=== PATIENT | male | born 1955 | race African-American/Black ===

== ENCOUNTER → 2016-08-05 | Day surgery (SDC) | payer BC, OTHER ==
[2016-07-30 11:41] VITALS: Ht 198.1 cm; Wt 105.5 kg
[~2016-08-05] VITALS: Ht 198.1 cm; Wt 105.5 kg
[~2016-08-05] MED LIST: AMLO-110 PO; ARGI1POW PO; B-COTAB18 PO; BENA20TA14 PO; CLON1TAB3 PO; CLR10 PO; FLNIN NAE; GABA1CAP5 PO; HYDR25TA5 PO; IOPAMIDOL INJ 61% 15 ML VIAL ONE; LEVO88TA3 PO; LIDOCAINE HCL 1% MPF 5 ML VIAL ONE; METH500T PO; SERT-234 PO; SNG10 PO; SODIUM CHLORIDE 0.9% INJ 10 ML VIAL ONE; TIZA4CAP PO; TRAM-10 PO
--- NOTE | 2016-08-05 13:55 | History & Physical Bridge - [place] ---
H&P Re-Evaluation Bridge Note: I have examined the patient, reviewed the History & Physical and in the interval since the performance of the History & Physical I have noted the following changes of clinical significance: No changes noted
[2016-08-05 14:24] VITALS: TEMP 36.9
--- NOTE | 2016-08-05 14:28 | Discharge Instructions ---
Discharge Instructions Visit Reason for Visit: Lumbar Radiculopathy Discharge Discharge Diagnosis / Problem: left leg pain Discharge Goals Goal(s): Decrease discomfort, Improve function Activity Recommendations Activity Limitations: resume your previous activity Anesthesia . Post Anesthesia Instructions: If you have had General Anesthesia or IV Sedation: * Do not drive today. * Resume driving when surgeon permits. * Do not make important decisions or sign legal documents today. * Call surgeon for: 1. Temperature elevations greater than 101 degrees F. 2. Uncontrollable pain. 3. Excessive bleeding. 4. Persistent nausea and vomiting. 5. Medication intolerance (nausea, vomiting or rash). * For nausea and vomiting use only clear liquids such as: tea, soda, bouillon until nausea subsides, then gradually increase diet as tolerated. * If you have any concerns or questions, call your surgeon's office. If physician is unavailable and it is an emergency, call 911 or go to the nearest emergency room. . Diet Recommendations Recommended Home Diet: resume previous diet Procedures Procedures Performed: LIMBAR EPIDURAL STEROID INJECTION. Pending Studies Studies pending at discharge: no Medical Emergencies . Who to Call and When: Medical Emergencies: If at any time you feel your situation is an emergency, please call 911 immediately. . Non-Emergent Contact Non-Emergency issues call your: Specialist . . "Provider Documentation" section prepared by Mukul Avila.
[2016-08-05 14:32] VITALS: BP 138/82; PULSE 64; O2SAT 96
--- NOTE | 2016-08-05 14:38 | OPERATIVE REPORT ---
DATE OF OPERATION: 08/05/2016 PREOPERATIVE DIAGNOSIS: L3-4 annular tear with a left L4 radiculopathy. POSTOPERATIVE DIAGNOSIS: Same. PROCEDURE: Left paramedian L4-5 interlaminar epidural steroid injection under fluoroscopic guidance. INDICATIONS FOR PROCEDURE: The patient is a 61-year-old male who responded favorably to an oral prednisone taper. Recent imaging of the lumbar spine has revealed an L3-4 annular tear which corresponds with the left lower extremity radicular symptoms. The prednisone taper was beneficial; however, he is still functionally limited because of the pain down the left leg and he presents today for an epidural steroid injection to provide him with relief that is more long lasting and substantial as he has had success with epidural injections in the past for radicular type pain. PHYSICAL EXAMINATION: Pleasant male seated comfortably. He had some difficulty moving from a sit to stand position. He has normal lower extremity strength. Negative seated straight leg raises and intact sensation distally at the L4, L5, and S1 dermatomes. CONSENT: Verbal and written consent was obtained from the patient. Risks and benefits were reviewed. Risks include but are not limited to epidural abscess, epidural hematoma, allergic reaction, dural puncture. The patient wishes to proceed. DESCRIPTION OF PROCEDURE: The patient was taken back to the special procedures room of the [facility] where he was maintained in a prone position. Backside was cleansed with Betadine x3 and a dry sterile dressing was applied. Fluoroscope was used to identify the L4-5 intralaminar space and overlying skin was anesthetized with 4 mL of lidocaine 1% with a 25-gauge 1.5-inch needle. A 22-gauge 3.5-inch Tuohy needle was then directed down towards the intralaminar space. It was advanced under lateral fluoroscopic guidance. Loss of resistance was noted at a depth of just under 8 cm. Isovue-300 contrast 1 mL was injected in which demonstrated epidural uptake pattern which showed great flow superiorly into the L3-4 disc space in the area. He then underwent injection after negative aspiration of 40 mg of Depo-Medrol, 4 mL of preservative free sodium chloride. Injection was well tolerated. DISPOSITION: 1. The patient is taken out into the discharge recovery area where he will be discharged home once discharge criteria have been met. 2. Follow up in the [facility] office in 2-4 weeks. I attest to the content of the Intraoperative Record and any orders documented therein. Any exceptio ns are noted below.
== END | disposition home or self-care (01) ==
LOC: X.SURG 13:40
PROVIDERS: ATTEND Physical Medicine & Rehabilitation
DX: M51.86 Other intervertebral disc disorders, lumbar region (principal); M54.16 Radiculopathy, lumbar region

== ENCOUNTER → 2017-09-16 | Outpatient (CLI) | payer BC ==
[~2017-09-16] MED LIST changes: +GABA-1220 PO; -GABA1CAP5 PO; -IOPAMIDOL INJ 61% 15 ML VIAL ONE; -LIDOCAINE HCL 1% MPF 5 ML VIAL ONE; -SODIUM CHLORIDE 0.9% INJ 10 ML VIAL ONE
--- NOTE | 2017-09-16 12:23 | DIAGNOSTIC IMAGING REPORT ---
LUMBAR SPINE MRI HISTORY: Back pain. Left leg pain. FORAMINAL STENOSIS OF LUMBAR REGION TECHNIQUE: Multiplanar multisequence MRI of the lumbar spine was performed without the use of contrast. COMPARISON: Lumbar spine MRI 02/25/2016. FINDINGS: For the purpose of the report the L5-S1 disc space will be located on axial image 23 of 26. There is 2 mm of retrolisthesis of L3 on L4, unchanged. Mild disc space narrowing at L1-L2, L3-L4, L4-L5, and L5-S1 is also unchanged. There is mild disc space narrowing within the lower thoracic spine. The conus terminates at the L1-L2 disc space level. Moderate facet degenerative changes at L5-S1. No fractures within the lumbar spine. Paraspinal soft tissues are unremarkable. Scattered areas of mild endplate edema within the lumbar spine is likely due to degenerative change. L1-L2: No significant central canal or neural foraminal narrowing. L2-L3: No significant central canal or neural foraminal narrowing. L3-L4: No significant central canal or neural foraminal narrowing. Tiny broad-based posterior disc bulge. L4-L5: Small broad-based posterior disc bulge. No significant central canal narrowing. There is mild bilateral neural foraminal narrowing. L5-S1: Small broad-based posterior disc bulge with facet hypertrophy. No significant central canal narrowing. There is moderate bilateral neural foraminal narrowing. IMPRESSION: 1. Progression of the moderate bilateral neural foraminal narrowing at L5-S1 due to the facet arthrosis at this level. 2. Otherwise, no change in the multilevel mild mild bilateral degenerative disc disease as described above. No significant central canal narrowing. Electronically signed by: Parrish Barroso M.D. 09/16/2017 12:21 PM Dictated Date/Time: 09/16/2017 12:06 PM
== END | disposition home or self-care (01) ==
LOC: C.MRIBC 10:59
PROVIDERS: ATTEND Physical Medicine & Rehabilitation
DX: M99.83 Other biomechanical lesions of lumbar region (principal)